=== PATIENT | female | born 1965 | race African-American/Black ===

== ENCOUNTER 2024-12-08 07:15 | Day surgery (SDC) | payer OTHER ==
[~2024-12-08] VITALS: Ht 163.8 cm; Wt 104.5 kg
[~2024-12-08 07:15] MED LIST: ADAL40PE5 SQ; ATOR40TA71 PO; AZEL137S8 NASAL; CHOL500045 PO; CYCL5TAB3 PO; DAPA10TA PO; FAMO40TA7 PO; FLUT12AE21 IH; FLUT16SP NASAL; HYDR25TA2 PO; LORA10TA7 PO; METF-1211 PO; MONT-40 PO; SODIUM CHLORIDE 0.9% 1,000 ML ONE; TIRZ7.5P SQ; VENL225T PO
[2024-12-08] MEDS ORDERED: FentaNYL CITRATE PF 100 MCG/2 ML VIAL ONE (07:56)
[2024-12-08] MEDS ORDERED: MIDAZOLAM HCL 2 MG/2 ML VIAL ONE (07:57)
[2024-12-08] MEDS: SODIUM CHLORIDE 0.9% 1,000 ML IV ONE (08:31)
[2024-12-08] MEDS ORDERED: DOCU-412 PO (08:59)
[2024-12-08] MEDS ORDERED: SENN-395 PO (08:59)
[2024-12-08] MEDS ORDERED: CELE200 PO (08:59)
[2024-12-08] MEDS ORDERED: LOSA-382 PO (08:59)
[2024-12-08] MEDS ORDERED: GABA-1554 PO (08:59)
[2024-12-08] MEDS ORDERED: CETI10TA58 PO (08:59)
[2024-12-08] MEDS ORDERED: TOPI-97 PO (08:59)
[2024-12-08] MEDS ORDERED: BREX4TAB PO (08:59)
[2024-12-08 09:46] LABS: GLUCOMETER DEV NAME(LOC) SDS.; GLUCOSE,POINT OF CARE 101 MG/DL (70-110)
[2024-12-08 10:00] VITALS: PULSE 100; RESP 21; O2SAT 100
[2024-12-08] MEDS ORDERED: SODIUM CHLORIDE 0.9% 1,000 ML ONE (10:28)
[2024-12-08] MEDS: MethylPREDNISolone SOD SUCC 125 MG/2 ML VIAL IVP ONE (10:46)
[2024-12-08] MEDS ORDERED: BENZOCAINE 20% 50 MCG/SPRAY 57 GM ONE (12:00)
[2024-12-08] MEDS ORDERED: ALBUTEROL SULFATE 2.5 MG/0.5 ML NEB SOLUTION NEB ONE (12:00)
[2024-12-08] MEDS ORDERED: LIDOCAINE 2% 11 ML JELLY ONE (12:00)
[2024-12-08] MEDS ORDERED: LIDOCAINE 4% 50 ML SOLUTION ONE (12:00)
== END 2024-12-08 12:15 | disposition home or self-care (01) ==
LOC: SURGERY 07:15
PROVIDERS: ATTEND Internal Medicine Critical Care Medicine
DX: R05.3 Chronic cough (principal); J98.09 Other diseases of bronchus, not elsewhere classified; J98.8 Other specified respiratory disorders; J84.10 Pulmonary fibrosis, unspecified; G47.30 Sleep apnea, unspecified; M06.9 Rheumatoid arthritis, unspecified; I10 Essential (primary) hypertension; F41.8 Other specified anxiety disorders; Z79.899 Other long term (current) drug therapy; Z91.040 Latex allergy status; Z88.8 Allergy status to other drugs, medicaments and biological substances; Z90.710 Acquired absence of both cervix and uterus; Z98.890 Other specified postprocedural states
CPT/HCPCS: 31623; 82962; 87206; 87101; 87220; 87070; 88108; 88312; 31624; 94640; 71045; 87015; J3010; J2250; J7030; J7613; Z7610